=== PATIENT | female | born 1965 | race Caucasian/White ===

== ENCOUNTER 2017-07-03 13:02 | Emergency (ER) | payer SELFPAY ==
[~2017-07-03] VITALS: Ht 162.6 cm; Wt 49.9 kg
[2017-07-03] MEDS ORDERED: KETOROLAC TROMETHAMINE 60 MG/2 ML VIAL IM ONE (14:00)
[2017-07-03] MEDS ORDERED: CYCLOBENZAPRINE HCL 10 MG TAB PO ONE (14:00)
[2017-07-03] MEDS ORDERED: HYDROCODONE/APAP 10MG-325MG TAB PO ONE (14:00)
--- NOTE | 2017-07-03 14:32 | Diagnostic Imaging Report ---
PROCEDURE:X-RAY LUMBAR SPINE, TWO VIEWS COMPARISON:None. INDICATIONS:LOW BACK PAIN FINDINGS: There are 5 lumbar-type vertebral bodies. Mild grade 1 anterolisthesis of L5 on S1 and L4. Degenerative disc changes with osteophytosis predominantly L3-L4, L4-L5 with mild intervertebral disc space narrowing L4-L5. There are no acute, displaced fractures, lytic or blastic lesions. The vertebral body heights are well-maintained. The sacroiliac joints are unremarkable. CONCLUSION: No acute abnormalities. Degenerative disc changes, predominantly L4-L5. Hosea Reese M.D. Dictated by: Hosea Reese M.D. on 07/03/2017 at 14:32 Electronically approved by: Hosea Reese M.D. on 07/03/2017 at 14:32
--- NOTE | 2017-07-03 14:33 | Diagnostic Imaging Report ---
PROCEDURE:X-RAY ABDOMEN - KUB COMPARISON:None. INDICATIONS:LOW BACK PAIN FINDINGS: Nonobstructive bowel gas pattern. No acute displaced fracture or dislocation. No abnormal calcifications overlie the renal shadows, expected course of ureters or bladder. Degenerative disc changes in the lower cervical spine, predominantly L4-L5. No acute displaced fracture or dislocation. No aggressive lytic lesion. Lung bases are clear. CONCLUSION: Nonobstructive bowel gas pattern. No abnormal calcifications. Hosea Reese M.D. Dictated by: Hosea Reese M.D. on 07/03/2017 at 14:33 Electronically approved by: Hosea Reese M.D. on 07/03/2017 at 14:33
[2017-07-03 17:25] LABS: BILIRUBIN,URINE NEGATIVE (NEGATIVE); COLOR,URINE YELLOW (YELLOW); KETONES,URINE NEGATIVE (NEGATIVE); LEUKOCYTE ESTERASE ,URINE NEGATIVE (NEGATIVE); NITRITE,URINE NEGATIVE (NEGATIVE); PROTEIN,URINE DIPSTICK NEGATIVE (NEGATIVE); URINE UROBILINOGEN 0.2 mg/dL (0.2 - 1)
[2017-07-03 17:26] LABS: CLARITY,URINE SL CLOUDY (CLEAR)
[2017-07-03 17:39] LABS: EPITHELIAL CELLS,URINE MODERATE /LPF
--- NOTE | 2017-07-05 13:40 | Progress Note ---
DATE: IMPRESSION: Fever, rule out central nervous system, rule out infection, rule out ischemic changes. Hypoperfusion. PLAN: I agree with broad coverage antibiotic, cefepime, metronidazole while waiting for the cultures and see how clinically she is going to do. Neuro is in the progress of evaluating her brain activity. Job#: [id number] GH
== END 2017-07-03 18:40 | disposition home or self-care (01) ==
LOC: ER 13:02
DX: M54.5 Low back pain (principal)
CPT/HCPCS: 72100; 74018; 81001; 99282

== ENCOUNTER 2017-12-06 11:33 | Observation (INO) | payer SELFPAY ==
[~2017-12-06] VITALS: Ht 170.2 cm; Wt 52.2 kg
[2017-12-06] MEDS ORDERED: ASPIRIN 81 MG CHEW TAB PO ONE (12:00)
[2017-12-06 12:14] LABS: BASOPHILS % 0.2 % (0.0-1.0); EOSINOPHILS # (AUTO) 0.1 (0.0-0.4); EOSINOPHILS % 1.1 % (0.0-6.0); HEMATOCRIT 39.3 % (34.2-44.1); HEMOGLOBIN 13.7 g/dL (12.0-16.0); LYMPHOCYTES # (AUTO) 4.1 (1.0-3.2); MEAN CORPUSCULAR HEMOGLOBIN 32.5 pg (28-32); MEAN CORPUSCULAR HGB CONC 34.9 g/dL (31-35); MEAN CORPUSCULAR VOLUME 93.3 fL (81-99); MONOCYTES % 7.6 % (4.4-11.3); NEUTROPHILS # (AUTO) 7.6 (2.1-6.9); NEUTROPHILS % 58.8 % (38.7-80.0); PLATELET COUNT 295 x10e3/uL (140-360); RED BLOOD COUNT 4.21 x10e6/uL (3.6-5.1); RED CELL DISTRIBUTION WIDTH 12.5 % (11.7-14.4)
[2017-12-06 12:26] LABS: INR 1.05; PROTHROMBIN TIME 12.9 seconds (11.9-14.5)
[2017-12-06 12:27] LABS: PARTIAL THROMBOPLASTIN TIME 34.7 seconds (23.8-35.5)
[2017-12-06 12:34] LABS: ALANINE AMINOTRANSFERASE 10 IU/L (0-55); ALBUMIN 4.4 g/dL (3.5-5.0); ALBUMIN/GLOBULIN RATIO 1.4 (0.8-2.0); ALKALINE PHOSPHATASE 54 IU/L (40-150); ANION GAP 13.8 mmol/L (8-16); BLOOD UREA NITROGEN 16 mg/dL (7-26); BUN/CREATININE RATIO 25 (6-25); CALCIUM 10.6 mg/dL (8.4-10.2); CARBON DIOXIDE 24 mmol/L (22-29); CHLORIDE 101 mmol/L (98-107); CREATINE KINASE 41 IU/L (29-168); CREATININE, SERUM 0.63 mg/dL (0.57-1.11); EST GLOMERULAR FILTRATION RATE > 60 ML/MIN (60-); GLUCOSE 87 mg/dL (74-118); POTASSIUM 3.8 mmol/L (3.5-5.1); SODIUM 135 mmol/L (136-145)
--- NOTE | 2017-12-06 13:06 | Diagnostic Imaging Report ---
EXAMINATION: CHEST SINGLE (PORTABLE) COMPARISON: None INDICATION: Chest pain, dizziness DISCUSSION: Frontal view of the chest obtained at 1237 hours. HEART AND MEDIASTINUM: The cardiomediastinal silhouette is unremarkable. LINES: None. LUNGS: The lungs are well inflated and clear. No pneumonia or pulmonary edema. PLEURA: No pleural effusion or pneumothorax. BONES AND SOFT TISSUES: No focal osseous lesion. The soft tissues are normal. IMPRESSION: No acute cardiopulmonary disease. Signed by: Dr. Robert Paulino MD on 12/06/2017 1:03 PM
[2017-12-06] MEDS ORDERED: NITROGLYCERIN 0.4 MG SUBL SL PRN (13:45)
[2017-12-06] MEDS ORDERED: MORPHINE SULFATE 2 MG/ML SYR IV PRN (13:45)
[2017-12-06] MEDS ORDERED: SODIUM CHLORIDE FLUSH 10 ML SYR INJ PRN (13:45)
[2017-12-06] MEDS: FAMOTIDINE 20 MG TAB PO SCH (14:00)
[2017-12-06] MEDS: ENOXAPARIN SOD INJ 60 MG/0.6 ML SYR SC SCH (14:00)
[2017-12-06 15:17] VITALS: BP 126/86
[2017-12-06] MEDS ORDERED: VITAMIN C500 M1 (15:17)
[2017-12-06] MEDS ORDERED: CALCIUM 500+D1 EACH (15:17)
--- NOTE | 2017-12-06 16:00 | History and Physical ---
CHIEF COMPLAINT: Chest pain. HISTORY OF PRESENT ILLNESS: Ms. Coronado is a 52-year-old woman with a family history of coronary artery disease, father with aortocoronary bypass in his 60s and active smoker of 5 cigarettes a day, who presents to [facility] via the emergency department with complaints of chest discomfort onset approximately 2 weeks ago, midsternal with associated left upper extremity numbness. Does get worse with exertion, moderate in severity. However, also gets worse with rotation of her trunk, as well as with deep inspiration. It is associated with lightheaded spells. Has occurred at rest, as well as with exertion. Does not reliably occur with every time she ambulates. She has no other reported symptoms. ALLERGIES: NO KNOWN DRUG ALLERGIES. REVIEW OF SYSTEMS: A 12-system reviewed and negative, except for as noted above. PAST MEDICAL HISTORY: Denies past history. SOCIAL HISTORY: Active smoker of 5 cigarettes a day. Denies alcohol or drug use. FAMILY HISTORY: Significant for CAD. Father in his 60s. PHYSICAL EXAMINATION VITALS: Temperature 98.7, heart rate 74, respiratory rate 20, blood pressure 115/79, O2 sat 100% on room air. GENERAL: In no acute distress. Alert. Mucosa moist. NECK: No JVD. CHEST: Clear to auscultation. CARDIOVASCULAR: Regular rate and rhythm. Normal S1 and S2. No S3. No S4. No murmurs or rubs. EXTREMITIES: No edema. SKIN: Dry and intact. MEDICATIONS: Reviewed. 1. Famotidine 20 mg q.12 h. 2. Lovenox 50 mg subcutaneous q.12 h. 3. Nitroglycerin p.r.n. 4. Aspirin 81 mg daily. STUDIES: Reviewed. White blood cells 12.8, hemoglobin 13.7 and platelets 295,000. INR 1. Creatinine 0.6. Normal transaminases. CK 41, CK-MB 0.7 and troponin I less than 0.001. BNP 33. Glucose 87. Chest x-ray clear lungs. No cardiomediastinal silhouette. EKG is normal sinus rhythm. Normal EKG. ASSESSMENT 1. Chest pain with some features concerning for unstable angina: However, makes pattern somewhat atypical. 2. Smoker of 5 cigarettes a day. 3. Family history of coronary artery disease. RECOMMENDATIONS 1. Trend serial cardiac enzymes. 2. Keep on telemetry. 3. Obtain echocardiogram. 4. Schedule for stress test Friday a.m. 5. Add beta cyndi and continue rest of cardiovascular medications. 6. Prophylaxis. Continue with Pepcid and Lovenox. Job#: [id number] RI
[2017-12-06 16:32] VITALS: BP 113/59
[2017-12-06 17:14] LABS: AMPHETAMINES SCREEN,URINE NEGATIVE (NEGATIVE); BENZODIAZEPINES SCREEN,URINE NEGATIVE (NEGATIVE); PHENCYCLIDINE SCREEN,URINE NEGATIVE (NEGATIVE)
[2017-12-06] MEDS: NITROGLYCERIN 2% OINT 1 GM PKT TOP SCH (18:00)
[2017-12-06 19:08] LABS: CREATINE KINASE 37 IU/L (29-168)
[2017-12-06 19:40] VITALS: BP 113/61
[2017-12-06 20:24] VITALS: BP 113/59
[2017-12-06 21:19] VITALS: BP 113/59
[2017-12-07] VITALS (8 sets, daily range): BP systolic 103–127; BP diastolic 67–77
[2017-12-07 05:10] LABS: BASOPHILS % 0.4 % (0.0-1.0); EOSINOPHILS # (AUTO) 0.3 (0.0-0.4); EOSINOPHILS % 3.1 % (0.0-6.0); HEMATOCRIT 38.6 % (34.2-44.1); LYMPHOCYTES # (AUTO) 3.8 (1.0-3.2); LYMPHOCYTES % 44.3 % (18.0-39.1); MEAN CORPUSCULAR HEMOGLOBIN 31.9 pg (28-32); MEAN CORPUSCULAR HGB CONC 33.7 g/dL (31-35); MEAN CORPUSCULAR VOLUME 94.6 fL (81-99); MONOCYTES # (AUTO) 0.8 (0.2-0.8); MONOCYTES % 9.3 % (4.4-11.3); NEUTROPHILS # (AUTO) 3.6 (2.1-6.9); NEUTROPHILS % 42.5 % (38.7-80.0); PLATELET COUNT 274 x10e3/uL (140-360); RED BLOOD COUNT 4.08 x10e6/uL (3.6-5.1); RED CELL DISTRIBUTION WIDTH 12.5 % (11.7-14.4)
[2017-12-07] MEDS: NITROGLYCERIN 2% OINT 1 GM PKT TOP SCH ×4 (05:19→18:00)
[2017-12-07] MEDS: FAMOTIDINE 20 MG TAB PO SCH ×2 (05:19→14:13)
[2017-12-07] MEDS: ENOXAPARIN SOD INJ 60 MG/0.6 ML SYR SC SCH ×2 (05:19→14:13)
[2017-12-07 05:31] LABS: ANION GAP 10.1 mmol/L (8-16); BLOOD UREA NITROGEN 18 mg/dL (7-26); BUN/CREATININE RATIO 30 (6-25); CALCIUM 9.4 mg/dL (8.4-10.2); CARBON DIOXIDE 27 mmol/L (22-29); CHLORIDE 103 mmol/L (98-107); CHOL/HDL RATIO 2.7 (3.0-3.6); CHOLESTEROL 167 MD/DL (0-199); CREATININE, SERUM 0.61 mg/dL (0.57-1.11); EST GLOMERULAR FILTRATION RATE > 60 ML/MIN (60-); GLUCOSE 85 mg/dL (74-118); HDL CHOLESTEROL 63 MG/DL (40-60); LDL CHOLESTEROL 88 MG/DL (60-130); POTASSIUM 4.1 mmol/L (3.5-5.1); SODIUM 136 mmol/L (136-145); TRIGLYCERIDES 78 MG/DL (0-149)
[2017-12-07 05:50] LABS: CREATINE KINASE 33 IU/L (29-168)
[2017-12-07] MEDS: ASPIRIN 81 MG ENTERIC COATED PO SCH (08:59)
[2017-12-07] MEDS ORDERED: ACETAMINOPHEN 325 MG TAB PO PRN ×2 (10:30→14:00)
[2017-12-07] MEDS: ACETAMINOPHEN 325 MG TAB PO PRN (11:03)
[2017-12-07] MEDS: NICOTINE 14 MG/EA PATCH TOP SCH (11:03)
[2017-12-07 13:42] LABS: CREATINE KINASE 30 IU/L (29-168)
[2017-12-08] VITALS: BP 103/57
[2017-12-08] MEDS: FAMOTIDINE 20 MG TAB PO SCH ×2 (02:02→13:59)
[2017-12-08] MEDS: ENOXAPARIN SOD INJ 60 MG/0.6 ML SYR SC SCH ×2 (02:02→14:00)
[2017-12-08 03:00] VITALS: BP 114/62
[2017-12-08] MEDS: NITROGLYCERIN 2% OINT 1 GM PKT TOP SCH ×3 (06:00→12:00)
[2017-12-08 07:00] VITALS: BP 109/73
[2017-12-08] MEDS: ASPIRIN 81 MG ENTERIC COATED PO SCH (08:57)
[2017-12-08] MEDS: NICOTINE 14 MG/EA PATCH TOP SCH (08:57)
[2017-12-08] MEDS ORDERED: ASPIRIN325 MG PO (10:08)
[2017-12-08] MEDS ORDERED: REGADENOSON 0.4 MG/5 ML SYR IV ONE (10:55)
--- NOTE | 2017-12-08 12:11 | Progress Note ---
DATE: December 08, 2017 CARDIOLOGY PROGRESS NOTE SUBJECTIVE: Denies chest pain. Occasional lightheaded spells occurring at rest. When ambulating in the room and the halls, has no reported symptoms. Stress test scheduled this a.m. Report to follow. OBJECTIVE VITAL SIGNS: Heart rate 86, blood pressure 115/65, respiratory rate 18. GENERAL: No acute distress. Alert. NECK: No JVD. CHEST: Clear to auscultation. CARDIOVASCULAR: Regular rate and rhythm. Normal S1 and S2. No S3, no S4, no murmurs, no rubs. ABDOMEN: Soft, nontender, nondistended. EXTREMITIES: No cyanosis, clubbing, or edema. LAB WORK: Reviewed. Negative cardiac enzymes times 3. Echocardiogram reviewed; preserved left ventricular systolic function with normal regional wall motion and no significant valvular abnormalities. TELEMETRY: Reviewed and normal sinus rhythm. ASSESSMENTS 1. Chest pain with some features concerning for angina pectoris; however, other atypical features, negative cardiac enzymes, no acute myocardial infarction. A stress test ongoing today. 2. Smoker. RECOMMENDATIONS 1. Statin and aspirin. 2. Blood pressure on the low side of normal, limiting beta cyndi use. 3. Ambulation with limited exertion for now, pending stress test results. Await to proceed with further recommendations. Job#: [id number] LETI
[2017-12-08 12:30] VITALS: BP 126/68
[2017-12-08] MEDS: ACETAMINOPHEN 325 MG TAB PO PRN (13:30)
--- NOTE | 2017-12-08 14:21 | Progress Note ---
DATE: December 08, 2017 INTERNAL MEDICINE PROGRESS NOTE This is coverage for Dr. Arturo Senior. SUBJECTIVE: Ms. Coronado was seen and examined at bedside. No large occurrences of chest pains. No large headaches although there was low level dizziness she did. Otherwise, cardiac enzymes are mostly unremarkable. Her white count normalized. REVIEW OF SYSTEMS: No bleeding, no rash. OBJECTIVE VITAL SIGNS: Afebrile. Vital signs noted per the chart record. GENERAL: No acute distress, alert and calm. HEENT: Normocephalic, atraumatic. NECK: Supple. Throat midline. LUNGS: Bilateral air entry clear. CARDIOVASCULAR: S1, S2. No murmurs, rubs, or gallops. ABDOMEN: Soft, nontender. EXTREMITIES: No clubbing, no cyanosis, there is no edema. INTEGUMENT: No rash, no purpura. LABS: 18 BUN, 26 creatinine, 39, hematocrit. IMPRESSION AND PLAN 1. Chest pains, atypical. 2. Active smoker. 3. Family history of significant coronary artery disease. 4. Leukocytosis, now normalized. 5. Patient n.p.o. Continue n.p.o. state. Get stress test today. Consider discharge if stress test is totally good. Followup echo report and will also consider planning baseline telemetry and echo. Will follow with Dr. Henderson of cardiology. Job#: [id number] DOMINGUEZ
[2017-12-08 16:04] VITALS: BP 121/65
--- NOTE | 2017-12-08 18:46 | Cardiology Report ---
DATE OF STUDY: LEXISCAN MYOCARDIAL PERFUSION RESTING STRESS INTERPRETATION AND SUPERVISION WITH LEXISCAN AND TECHNETIUM AND SPECT CAMERA PROCEDURE INDICATIONS: Atypical chest pain. INTERPRETATION: At rest, heart rate was 74, blood pressure 120/70. Resting EKG was normal sinus rhythm. Normal EKG. After Lexiscan was administered, heart rate hui to 116 beats per minute and blood pressure decreased to 118/68. There were no significant S/T changes or arrhythmias throughout stress or recovery. No symptoms were reported. Other than now, no other symptoms were reported. Myocardial perfusion revealed normal rest and stress perfusion. Gated images demonstrate preserved left ventricular systolic function. Normal regional wall motion and left ventricular ejection fraction more than 70%. CONCLUSION 1. Normal hemodynamic response to Lexiscan stress. 2. Normal electrocardiographic response to Lexiscan stress. 3. Normal myocardial perfusion at rest and stress. 4. Preserved left ventricular systolic function with left ventricular ejection fraction more than 70%. Job#: [id number] SC
--- NOTE | 2017-12-08 22:30 | Discharge Summary ---
PRIMARY DIAGNOSIS: Chest pain, treat for acute coronary syndrome. DISCHARGE DIAGNOSIS: Chest pain, less likely acute coronary syndrome. SECONDARY DIAGNOSES 1. Chronic smoking. 2. Family history of coronary artery disease. 3. Elevated white blood cells. 4. History of brain aneurysm. HOSPITAL COURSE: Ms. Coronado was admitted after having these atypical chest symptoms. The patient was seen by Dr. Henderson of cardiology. The patient had ruled out for UT. The patient was elected to go for stress test. Following stress test showed normal left ventricular ejection fraction with no evidence of ischemic abnormalities. At this point, the patient was allowed to discharge to outpatient followup. DISCHARGE MEDICATIONS: See discharge medication list. No beta blockers were given as blood pressure was below normal. DISCHARGE ACTIVITY: As tolerated. FOLLOWUP INSTRUCTIONS: Followup will be with Dr. Henderson. Greater than 30 minutes was spent in coordinating discharge. Multiple interventions over the last days. KINGSLEY QUIROZ MD Job#: [id number]
== END 2017-12-08 18:30 | disposition home or self-care (01) ==
LOC: ER 11:33 → ERHOLD 13:31 → IMCU 14:41
PROVIDERS: ADMIT Internal Medicine; ATTEND Internal Medicine
DX: R07.89 Other chest pain (principal); Z72.0 Tobacco use; Z82.49 Family history of ischemic heart disease and other diseases of the circulatory system; D72.829 Elevated white blood cell count, unspecified
CPT/HCPCS: 36415 ×2; 71045; 78452; 80048; 80053; 80061; 80307; 82550 ×2; 82553 ×2; 83036; 83880; 84443; 84484 ×2; 85025 ×2; 85610; 85730; 93005; 93017; 93306; 99284; A9502; G0378 ×3; J1650 ×3; J2270

== ENCOUNTER 2018-03-01 12:41 | Emergency (ER) | payer SELFPAY ==
[~2018-03-01] VITALS: Ht 170.2 cm; Wt 52.2 kg
[~2018-03-01 12:41] MED LIST: ASPIRIN325 MG PO; CALCIUM 500+D1 EACH; VITAMIN C500 M1
[2018-03-01] MEDS ORDERED: IPRATROPIUM BROMIDE 0.02% 2.5 ML NEB NEB STA (12:54)
[2018-03-01] MEDS ORDERED: SODIUM CHLORIDE 0.9% 1000ML 1,000 ML IV SCH (12:54)
[2018-03-01] MEDS ORDERED: ALBUTEROL SULF 0.083% NEB SOLN 3 ML NEB NEB STA (12:54)
[2018-03-01] MEDS ORDERED: ONDANSETRON HCL INJ 2 MG/ML VIAL IV PRN (13:00)
[2018-03-01] MEDS ORDERED: KETOROLAC TROMETHAMINE 30 MG/ML VIAL IV ONE (13:30)
[2018-03-01] MEDS ORDERED: FAMOTIDINE 20 MG/2 ML VIAL IV ONE (13:30)
[2018-03-01 13:35] LABS: BASOPHILS # (AUTO) 0.1 (0.0-0.1); BASOPHILS % 0.4 % (0.0-1.0); EOSINOPHILS # (AUTO) 0.1 (0.0-0.4); EOSINOPHILS % 0.6 % (0.0-6.0); HEMATOCRIT 40.8 % (34.2-44.1); LYMPHOCYTES # (AUTO) 2.8 (1.0-3.2); LYMPHOCYTES % 22.1 % (18.0-39.1); MEAN CORPUSCULAR HEMOGLOBIN 31.5 pg (28-32); MEAN CORPUSCULAR HGB CONC 34.3 g/dL (31-35); MEAN CORPUSCULAR VOLUME 91.7 fL (81-99); MONOCYTES # (AUTO) 0.7 (0.2-0.8); MONOCYTES % 5.5 % (4.4-11.3); NEUTROPHILS % 70.9 % (38.7-80.0); PLATELET COUNT 349 x10e3/uL (140-360); RED BLOOD COUNT 4.45 x10e6/uL (3.6-5.1)
[2018-03-01 13:48] LABS: BILIRUBIN,URINE NEGATIVE (NEGATIVE); CLARITY,URINE HAZY (CLEAR); COLOR,URINE YELLOW (YELLOW); KETONES,URINE NEGATIVE (NEGATIVE); LEUKOCYTE ESTERASE ,URINE TRACE (NEGATIVE); NITRITE,URINE NEGATIVE (NEGATIVE); PROTEIN,URINE DIPSTICK NEGATIVE (NEGATIVE); URINE UROBILINOGEN 0.2 mg/dL (0.2 - 1)
[2018-03-01 13:51] LABS: BACTERIA,URINE FEW /HPF; EPITHELIAL CELLS,URINE MODERATE /LPF; RBC,URINE 0-5 /HPF (0-5); WBC,URINE (MAN) 0-5 /HPF (0-5)
--- NOTE | 2018-03-01 13:58 | Diagnostic Imaging Report ---
Acute Abdominal Series CPT CODE: 94391 INDICATION: Cough, congestion, nausea, vomiting. COMPARISON: Chest x-ray 12/06/2017, abdomen x-ray 07/03/2017. FINDINGS: Single view of the chest shows no infiltrates or effusions. Costophrenic angles are sharp. Supine and erect views of the abdomen show unremarkable bowel gas pattern. No dilated bowel loops or air-fluid levels. No free air beneath the diaphragm. Calcifications: None Osseous structures and soft tissues are unremarkable. IMPRESSION: 1. Unremarkable bowel gas pattern. 2. Clear lungs. Signed by: Dr. Robert Paulino MD on 03/01/2018 1:55 PM
[2018-03-01 14:00] LABS: ALANINE AMINOTRANSFERASE 10 IU/L (0-55); ALBUMIN 4.2 g/dL (3.5-5.0); ALBUMIN/GLOBULIN RATIO 1.3 (0.8-2.0); ALKALINE PHOSPHATASE 64 IU/L (40-150); AMYLASE 47 U/L (25-125); ANION GAP 14.5 mmol/L (8-16); BLOOD UREA NITROGEN 13 mg/dL (7-26); BUN/CREATININE RATIO 19 (6-25); CALCIUM 9.8 mg/dL (8.4-10.2); CARBON DIOXIDE 28 mmol/L (22-29); CHLORIDE 103 mmol/L (98-107); CREATINE KINASE 47 IU/L (29-168); CREATININE, SERUM 0.68 mg/dL (0.57-1.11); EST GLOMERULAR FILTRATION RATE > 60 ML/MIN (60-); GLUCOSE 128 mg/dL (74-118); LIPASE 20 U/L (8-78); MAGNESIUM 2.1 MG/DL (1.3-2.1); POTASSIUM 3.5 mmol/L (3.5-5.1); SODIUM 142 mmol/L (136-145)
[2018-03-01 14:59] VITALS: BP 114/65
== END 2018-03-01 15:15 | disposition home or self-care (01) ==
LOC: ER 12:41
DX: R05 Cough (principal); R07.89 Other chest pain; J06.9 Acute upper respiratory infection, unspecified; F17.210 Nicotine dependence, cigarettes, uncomplicated
CPT/HCPCS: 36415; 74022; 80053; 81001; 82150; 82550; 82553; 83690; 83735; 83880; 84484; 85025; 87400; 93005; 99284; J1885; J2405; J7030

== ENCOUNTER 2018-07-18 08:16 | Emergency (ER) | payer SELFPAY ==
[~2018-07-18] VITALS: Ht 162.6 cm; Wt 52.2 kg
[2018-07-18] MEDS ORDERED: SODIUM CHLORIDE 0.9% 1000ML 1,000 ML IV STA (09:05)
[2018-07-18 09:26] LABS: BASOPHILS % 0.1 % (0.0-1.0); EOSINOPHILS # (AUTO) 0.1 (0.0-0.4); EOSINOPHILS % 0.5 % (0.0-6.0); HEMATOCRIT 38.2 % (34.2-44.1); LYMPHOCYTES # (AUTO) 2.3 (1.0-3.2); LYMPHOCYTES % 20.1 % (18.0-39.1); MEAN CORPUSCULAR HEMOGLOBIN 31.8 pg (28-32); MEAN CORPUSCULAR VOLUME 93.4 fL (81-99); MONOCYTES # (AUTO) 0.7 (0.2-0.8); MONOCYTES % 5.6 % (4.4-11.3); NEUTROPHILS # (AUTO) 8.5 (2.1-6.9); NEUTROPHILS % 73.4 % (38.7-80.0); PLATELET COUNT 254 x10e3/uL (140-360); RED BLOOD COUNT 4.09 x10e6/uL (3.6-5.1); RED CELL DISTRIBUTION WIDTH 12.5 % (11.7-14.4)
[2018-07-18] MEDS ORDERED: ONDANSETRON HCL INJ 2MG/ML 2ML 2 MG/ML VIAL IV ONE (09:30)
[2018-07-18 09:32] LABS: CLARITY,URINE CLEAR (CLEAR); COLOR,URINE YELLOW (YELLOW)
[2018-07-18 09:33] LABS: LEUKOCYTE ESTERASE ,URINE NEGATIVE (NEGATIVE); NITRITE,URINE NEGATIVE (NEGATIVE); PROTEIN,URINE DIPSTICK NEGATIVE (NEGATIVE)
[2018-07-18 09:34] LABS: BILIRUBIN,URINE NEGATIVE (NEGATIVE); KETONES,URINE NEGATIVE (NEGATIVE); URINE UROBILINOGEN 0.2 mg/dL (0.2 - 1)
[2018-07-18 09:35] LABS: INR 0.89; PROTHROMBIN TIME 12.5 seconds (11.9-14.5)
[2018-07-18 09:36] LABS: PARTIAL THROMBOPLASTIN TIME 33.6 seconds (23.8-35.5)
[2018-07-18 09:39] LABS: BACTERIA,URINE FEW /HPF; EPITHELIAL CELLS,URINE FEW /LPF; RBC,URINE 0-5 /HPF (0-5); WBC,URINE (MAN) 0-5 /HPF (0-5)
--- NOTE | 2018-07-18 09:51 | Diagnostic Imaging Report ---
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 Otherwise, agree with preliminary report. Signed by: Dr. Humberto Hernandez M.D. on 07/18/2018 12:24 PM ORIGINAL REPORT Exam: Noncontrast Head CT History: 53-year-old female with headache Comparison studies: Head CT dated 11/07/2016 Technique: Axial images were obtained from the skull base to the vertex. Coronal and sagittal reconstructions obtained from the axial data. Dose modulation, iterative reconstruction, and/or weight based adjustment of the mA/kV was utilized to reduce the radiation dose to as low as reasonably achievable. Findings: Scalp/skull: No abnormalities. No fractures, blastic or lytic lesions. Extra-axial spaces: No masses. No fluid collections. Brain sulci: Appropriate for age. Ventricles: Normal in size and configuration. No hydrocephalus. Parenchyma: No abnormal densities. No masses, hemorrhage, acute or chronic cortical vascular insults. Sellar/suprasellar region: No abnormalities Craniocervical junction: Patent foramen magnum. No Chiari one malformation. IMPRESSION: No acute abnormalities. Report dictated by neuroradiology fellow. Final read to follow. Signed by: Bulmaro Fox MD on 07/18/2018 9:47 AM
[2018-07-18 09:52] LABS: ALANINE AMINOTRANSFERASE 11 IU/L (0-55); ALBUMIN 4.1 g/dL (3.5-5.0); ALBUMIN/GLOBULIN RATIO 1.5 (0.8-2.0); ALKALINE PHOSPHATASE 52 IU/L (40-150); ANION GAP 11.8 mmol/L (8-16); BLOOD UREA NITROGEN 13 mg/dL (7-26); BUN/CREATININE RATIO 21 (6-25); CALCIUM 9.5 mg/dL (8.4-10.2); CARBON DIOXIDE 26 mmol/L (22-29); CHLORIDE 107 mmol/L (98-107); CREATINE KINASE 54 IU/L (29-168); CREATININE, SERUM 0.62 mg/dL (0.57-1.11); EST GLOMERULAR FILTRATION RATE > 60 ML/MIN (60-); GLUCOSE 90 mg/dL (74-118); MAGNESIUM 1.8 MG/DL (1.3-2.1); POTASSIUM 3.8 mmol/L (3.5-5.1); SODIUM 141 mmol/L (136-145)
--- NOTE | 2018-07-18 10:14 | Diagnostic Imaging Report ---
EXAMINATION: CHEST SINGLE (PORTABLE) INDICATION: ^PALPITATIONS HEADACHE COMPARISON: 03/01/2018 FINDINGS: AP view TUBES and LINES: None. LUNGS: Lungs are well inflated. Lungs are clear. There is no evidence of pneumonia or pulmonary edema. Bilateral nipple shadows are seen. PLEURA: No pleural effusion or pneumothorax. HEART AND MEDIASTINUM: The cardiomediastinal silhouette is unremarkable. BONES AND SOFT TISSUES: No acute osseous lesion. Soft tissues are unremarkable. UPPER ABDOMEN: No free air under the diaphragm. IMPRESSION: No acute thoracic abnormality. Signed by: Dr. Mario Street MD on 07/18/2018 10:11 AM
[2018-07-18] MEDS ORDERED: KETOROLAC TROMETHAMINE 30 MG/ML VIAL IV ONE (11:00)
[2018-07-18 11:01] VITALS: BP 122/75
== END 2018-07-18 11:15 | disposition home or self-care (01) ==
LOC: ER 08:16
DX: G43.909 Migraine, unspecified, not intractable, without status migrainosus (principal); G44.89 Other headache syndrome; R00.2 Palpitations; F17.210 Nicotine dependence, cigarettes, uncomplicated
CPT/HCPCS: 36415; 70450; 71045; 80053; 81001; 82550; 82553; 83735; 84443; 84484; 85025; 85610; 85730; 93005; 99284; J1885; J2405; J7030

== ENCOUNTER 2018-08-01 15:16 | Emergency (ER) | payer SELFPAY ==
[~2018-08-01] VITALS: Ht 162.6 cm; Wt 52.2 kg
[2018-08-01] MEDS ORDERED: SODIUM CHLORIDE 0.9% 1000ML 1,000 ML IV STA ×2 (16:13→17:33)
[2018-08-01] MEDS ORDERED: ONDANSETRON HCL INJ 2MG/ML 2ML 2 MG/ML VIAL IV ONE ×2 (16:30→18:00)
--- NOTE | 2018-08-01 16:54 | Diagnostic Imaging Report ---
EXAMINATION: CHEST SINGLE (PORTABLE) INDICATION: ^ERMD ORDER ^[id number] ^1630 ^Y COMPARISON: 07/18/2018 FINDINGS: AP view TUBES and LINES: None. LUNGS: Lungs are well inflated. There is no evidence of pneumonia or pulmonary edema. Bilateral nipple shadows are again seen. PLEURA: No pleural effusion or pneumothorax. HEART AND MEDIASTINUM: The cardiomediastinal silhouette is unremarkable. BONES AND SOFT TISSUES: No acute osseous lesion. Soft tissues are unremarkable. UPPER ABDOMEN: No free air under the diaphragm. IMPRESSION: No acute thoracic abnormality. Signed by: Dr. Mario Street MD on 08/01/2018 4:50 PM
[2018-08-01 17:21] LABS: BASOPHILS % 0.4 % (0.0-1.0); EOSINOPHILS # (AUTO) 0.1 (0.0-0.4); EOSINOPHILS % 0.6 % (0.0-6.0); HEMOGLOBIN 15.2 g/dL (12.0-16.0); LYMPHOCYTES # (AUTO) 2.1 (1.0-3.2); LYMPHOCYTES % 25.8 % (18.0-39.1); MEAN CORPUSCULAR HEMOGLOBIN 31.9 pg (28-32); MEAN CORPUSCULAR HGB CONC 34.5 g/dL (31-35); MEAN CORPUSCULAR VOLUME 92.2 fL (81-99); MONOCYTES # (AUTO) 0.7 (0.2-0.8); MONOCYTES % 8.4 % (4.4-11.3); NEUTROPHILS # (AUTO) 5.3 (2.1-6.9); NEUTROPHILS % 64.6 % (38.7-80.0); PLATELET COUNT 275 x10e3/uL (140-360); RED BLOOD COUNT 4.77 x10e6/uL (3.6-5.1); RED CELL DISTRIBUTION WIDTH 13.3 % (11.7-14.4)
[2018-08-01 17:25] LABS: INR 0.89; PROTHROMBIN TIME 12.5 seconds (11.9-14.5)
[2018-08-01 17:26] LABS: PARTIAL THROMBOPLASTIN TIME 28.1 seconds (23.8-35.5)
[2018-08-01 17:36] LABS: ALANINE AMINOTRANSFERASE 24 IU/L (0-55); ALBUMIN 4.2 g/dL (3.5-5.0); ALBUMIN/GLOBULIN RATIO 1.2 (0.8-2.0); ALKALINE PHOSPHATASE 83 IU/L (40-150); AMYLASE 56 U/L (25-125); ANION GAP 19.3 mmol/L (8-16); BLOOD UREA NITROGEN 14 mg/dL (7-26); BUN/CREATININE RATIO 20 (6-25); CALCIUM 9.6 mg/dL (8.4-10.2); CARBON DIOXIDE 24 mmol/L (22-29); CHLORIDE 101 mmol/L (98-107); CREATINE KINASE 60 IU/L (29-168); CREATININE, SERUM 0.69 mg/dL (0.57-1.11); EST GLOMERULAR FILTRATION RATE > 60 ML/MIN (60-); GLUCOSE 72 mg/dL (74-118); LIPASE 27 U/L (8-78); POTASSIUM 4.3 mmol/L (3.5-5.1); SODIUM 140 mmol/L (136-145)
[2018-08-01] MEDS ORDERED: SODIUM CHLORIDE 0.9% 1000ML 1,000 ML ONE (17:36)
[2018-08-01] MEDS ORDERED: LORAZEPAM INJ 2 MG/ML VIAL IV ONE (17:45)
[2018-08-01 17:56] LABS: THYROID STIMULATING HORMONE 1.162 uIU/mL (0.350-4.940)
[2018-08-01 18:11] LABS: AMPHETAMINES SCREEN,URINE NEGATIVE (NEGATIVE); BENZODIAZEPINES SCREEN,URINE NEGATIVE (NEGATIVE); PHENCYCLIDINE SCREEN,URINE NEGATIVE (NEGATIVE)
[2018-08-01 18:13] LABS: BILIRUBIN,URINE NEGATIVE (NEGATIVE); CLARITY,URINE CLEAR (CLEAR); COLOR,URINE YELLOW (YELLOW); KETONES,URINE 2+ (NEGATIVE); LEUKOCYTE ESTERASE ,URINE NEGATIVE (NEGATIVE); NITRITE,URINE NEGATIVE (NEGATIVE); PROTEIN,URINE DIPSTICK TRACE (NEGATIVE); URINE UROBILINOGEN 1 mg/dL (0.2 - 1)
--- NOTE | 2018-08-01 19:10 | NUR ---
Walking rounds with RJ Combs. Patient in no distress at this time.
[2018-08-01 19:12] LABS: BACTERIA,URINE MODERATE /HPF; EPITHELIAL CELLS,URINE MANY /LPF
[2018-08-01 20:59] VITALS: BP 125/73
== END 2018-08-01 21:04 | disposition home or self-care (01) ==
LOC: ER 15:16
DX: R11.2 Nausea with vomiting, unspecified (principal); K52.9 Noninfective gastroenteritis and colitis, unspecified; N30.90 Cystitis, unspecified without hematuria; F41.1 Generalized anxiety disorder; F17.210 Nicotine dependence, cigarettes, uncomplicated
CPT/HCPCS: 36415; 71045; 80053; 80307; 81001; 82150; 82550; 82553; 83690; 83880; 84443; 84484; 85025; 85610; 85730; 87086; 87400; 93005; 96374; 96375; 96376; 99284; J2060; J2405; J7030